=== PATIENT | male | born 2005 | race Caucasian/White ===

== ENCOUNTER 2024-03-30 19:57 | Emergency (ER) | payer OTHER, SELFPAY ==
--- NOTE | 2024-03-30 | ECG_ITS ---
Test Reason : ALCHOL WITHDRAWL Blood Pressure : / mmHG Vent. Rate : 093 BPM Atrial Rate : 093 BPM P-R Int : 114 ms QRS Dur : 092 ms QT Int : 348 ms P-R-T Axes : 067 039 032 degrees QTc Int : 432 ms Normal sinus rhythm with sinus arrhythmia Normal ECG No previous ECGs available Referred By: Generic ED Physician Electronically Signed By:VANDANA HURD MD
[2024-03-30 20:05] VITALS: BP 123/78; BP 136/71; PULSE 104; PULSE 99; RESP 20; TEMP 36.9; O2SAT 96; O2SAT 98; BMI 25.8
[2024-03-30 20:07] VITALS: BP 123/78; PULSE 100; RESP 16; TEMP 36.9; O2SAT 99
--- NOTE | 2024-03-30 20:07 | ED.GENADULT ---
HPI - General Adult General Chief complaint: General Medical Stated complaint: alcohol withdrawl, dizzy Time Seen by Provider: 03/30/24 20:05 Source: patient and EMS Mode of arrival: EMS Limitations: no limitations History of Present Illness ED Provider: Kerwin SLATER HPI narrative: 18-year-old male presents with a chief complaint of I am in liquor withdrawal , patient reports he drinks 5 nips a day last drink was Tuesday, since then he has just not been feeling well with nausea, shakiness. Feeling somewhat anxious. Denies hallucinations, suicidal or homicidal ideation. Reports he also smokes and is nicotine dependent. Denies any other illicit drugs. Denies history of delirium tremens. He states he drinks whatever I can get my hands on . Denies chest pain, shortness breath, fevers, chills, headache, vision changes, dizziness, diaphoresis Related Data Allergies Allergy/AdvReac Type Severity Reaction Status Date / Time No Known Allergies Allergy Verified 03/30/24 20:09 Review of Systems Review of Systems: Yes all other systems are reviewed and are negative [facility] Past Medical History Attestation statement: The following information was validated with the patient. Source: old records reviewed and nursing notes reviewed Social History Social History Do you have a plan to hurt others: No Plan Physical Exam ED Vital Signs: Vital Signs - 24 hr 03/30/24 20:05 03/30/24 20:07 03/30/24 22:29 Temperature 98.5 F 98.5 F 97.9 F Pulse Rate 99 100 91 Respiratory Rate 20 16 12 Blood Pressure 123/78 123/78 123/67 Pulse Oximetry 98 99 99 Oxygen Delivery Method Room Air Room Air Room Air BMI result Body Mass Index 25.8 vss Appearance: Alert.? Oriented X3.? No acute distress.? Patient anxious appear Head: Normocephalic, atraumatic, no step-offs or deformities. No tongue fasciculations Eyes: Pupils equal, round and reactive to light.? Neck: Normal inspection.? Neck supple. CVS: Normal heart rate and rhythm.? Pulses normal.? Respiratory: No respiratory distress.? Breath sounds normal.? Abdomen: Soft and nontender.? Skin: Skin warm and dry.? Normal skin color.? Normal skin turgor.? Extremities: No lower extremity edema.? No calf ttp. 5/5 strength to bilateral upper and lower extremities. No asterixis Neuro: Oriented X 3.? No motor deficit.? No sensory deficit. CN 2-12 intact Course Reevaluation(s) Reevaluation #1: CBC no acute findings requiring intervention. Chemistry with low potassium 3.2 oral potassium ordered. No other acute electrolyte abnormalities needing intervention. Total bilirubin 1.4 no abdominal tenderness to palpation no nausea, fevers, chills, tachycardia or abdominal tenderness on exam. No indication for further imaging will have him follow up with PCP for elevated hyperbilirubinemia. Ethanol negative. Urine toxicology pending. I will place a consult for the care team to evaluate patient. There is no signs of clinical withdrawal at this time. Plan will place CIWA protocol. And have care team evaluate patient At this time patient will be placed into observation to allow more time to be evaluated by care team. At time observation was started patient common cooperative no acute distress will continue to monitor. Time: 21:54 Reevaluation #2: Affect care team will give patient resources for detox if needed. Did speak to [facility] who feels comfortable taking patient back without a care team evaluation. Patient not suicidal or homicidal. He is feeling well and would like to leave. Appears much better at this time. Calm collected. No signs of ian or psychosis. No signs of intoxication. Alert and oriented x4. At this time patient to be discharged home with outpatient resources Educated patient on diagnosis and treatment plan, answered all question, patient verbalizes understanding. At this time patient will be discharged home, advised to return with new or worsening symptoms. Educated on worrisome signs and symptoms and when to return. At this time I feel comfortable discharge home. Observation ended at this time as patient is not interested in meeting with care team. Time: 22:35 Medications Administered Discontinued Medications Generic Name Dose Route Start Last Admin Trade Name Freq PRN Reason Stop Dose Admin Lorazepam 2 mg 03/30/24 20:08 03/30/24 20:45 Lorazepam 1 Mg Tablet PO 03/30/24 20:09 2 mg ONCE ONE Administration Potassium Chloride 20 meq 03/30/24 21:53 03/30/24 22:01 Potassium Chloride Er 20 Meq Tab.Er.Prt PO 03/30/24 21:54 20 meq ONCE ONE Administration Medical Decision Making Medical Decision Making MDM Narrative: 2010 18-year-old male presents with shakiness, and concerns he is in alcohol withdrawal. Reports he drinks 5 nips a day last drink on Tuesday. Not suicidal or homicidal Physical exam patient appears History and physical exam concerning for anxiety versus alcohol withdrawal less likely. No signs of delirium tremens. Also concerned for anxiety and/or depression. Will rule out polysubstance abuse. Unlikely metabolic derangements. No seizure-like activity unlikely delirium tremens. No chest pain, shortness of breath unlikely PE, ACS. This is likely anxiety. Plan at this time labs, imaging, urine. Differential Diagnosis Differential Diagnoses: The differential diagnosis associated with the presentation includes History and physical exam concerning for anxiety versus alcohol withdrawal less likely. No signs of delirium tremens. Also concerned for anxiety and/or depression. Will rule out polysubstance abuse. Unlikely metabolic derangements. No seizure-like activity unlikely delirium tremens. No chest pain, shortness of breath unlikely PE, ACS. This is likely anxiety. Admission/Observation Consideration of admission/observation: Escalation of care including admission/observation considered unlikley Consult Healthcare Provider Management of the patient was discussed with: Behavioral Health Provider Lab Data 03/30/24 20:11 03/30/24 20:11 Labs: Lab Results 03/30/24 Range/Units 20:11 WBC 9.2 (4.8-10.8) X10*3/uL RBC 4.65 (4.60-5.80) X10*6/uL Hgb 14.3 (14.0-18.0) g/dl Hct 39.5 L (42.0-52.0) % MCV 84.9 (80.0-98.0) fL MCH 30.8 (27.0-33.0) pg MCHC 36.2 H (31.0-36.0) g/dl RDW 12.3 (11.0-16.0) % Plt Count 209 (160-400) X10*3/uL MPV 12.1 (9.4-12.4) fL Immature Gran % (Auto) 0.2 (0.0-0.4) % Neut % (Auto) 69.0 (45-73) % Lymph % (Auto) 22.7 (20-40) % [place] % (Auto) 7.0 (2-11) % Eos % (Auto) 0.8 (0-4) % Baso % (Auto) 0.3 (0-2) % Lymph # (Auto) 2.1 (1.2-4.9) X10*3/uL [place] # (Auto) 0.6 (0.1-1.2) X10*3/uL Eos # (Auto) 0.1 (0.0-0.4) X10*3/uL Baso # (Auto) 0.0 (0.0-0.2) X10*3/uL Abs Immat Gran (auto) 0.02 (0.00-0.03) X10*3/uL Absolute Neuts (auto) 6.3 (2.0-8.3) x10*3/uL Absolute Nucleated RBC 0.000 (0.0-0.012) X10*3/uL Nucleated RBC % (auto) 0.0 (0.0-0.2) /100WBC Sodium 139 (135-145) mmol/L Potassium 3.2 L (3.3-5.1) mmol/L Chloride 107 (96-108) mmol/L Carbon Dioxide 20 L (22-29) mmol/L Anion Gap 15 (12-20) BUN 8 L (9-16) mg/dL Creatinine 0.88 (0.5-1.4) mg/dL Estim Creat Clear Calc 139.4 Estimated GFR > 60 Random Glucose 138 H (60-115) mg/dL Calcium 9.6 (8.4-10.2) mg/dL Magnesium 2.0 (1.6-2.6) mg/dL Total Bilirubin 1.4 H (0.0-1.0) mg/dL AST 13 (5-37) U/L ALT 12 (0-40) U/L Alkaline Phosphatase 101 (39-117) U/L Total Protein 7.4 (6.5-8.0) g/dL Albumin 4.4 (3.5-5.0) g/dL Ethyl Alcohol < 10 mg/dL Discharge Plan Discharge Clinical Impression: Anxiety Patient Disposition: Home, Self-Care Instructions: Panic Disorder (ED), Anxiety (ED) Additional Instructions: Take your medications as prescribed. If you were prescribed antibiotics today, it is important that you take your medication to their entirety, do not skip any doses, do not finish them early. Follow-up with your primary care provider this week. Return to the emergency department with new or worsening symptoms. Such as fevers, chills, chest pain, shortness of breath, nausea, vomiting, dizziness, headache, vision changes, lethargy In case of emergency call 911 Referrals: ED Physician,Generic [Physician] - 2 days Stand Alone Forms: Work/School Release
[2024-03-30 20:18] LABS: MANUAL DIFF FLAG NO
[2024-03-30 20:20] LABS: Basophils Percent Auto 0.3 % (0-2); Eosinophils Absolute Auto 0.1 X10*3/uL (0.0-0.4); Eosinophils Percent Auto 0.8 % (0-4); Hematocrit 39.5 % (42.0-52.0); Hemoglobin 14.3 g/dl (14.0-18.0); Imm Gran Abs Auto 0.02 X10*3/uL (0.00-0.03); Imm Gran Pct Auto 0.2 % (0.0-0.4); Lymphocytes Absolute Auto 2.1 X10*3/uL (1.2-4.9); Lymphocytes Percent Auto 22.7 % (20-40); Mean Corpuscular HGB Conc 36.2 g/dl (31.0-36.0); Mean Corpuscular Hemoglobin 30.8 pg (27.0-33.0); Mean Corpuscular Volume 84.9 fL (80.0-98.0); Mean Platelet Volume 12.1 fL (9.4-12.4); Monocytes Absolute Auto 0.6 X10*3/uL (0.1-1.2); Neutrophils Absolute Auto 6.3 x10*3/uL (2.0-8.3); Platelet Count 209 X10*3/uL (160-400); Red Blood Count 4.65 X10*6/uL (4.60-5.80); Red Cell Distribution Width 12.3 % (11.0-16.0); White Blood Count 9.2 X10*3/uL (4.8-10.8)
[2024-03-30 20:43] LABS: Alanine Aminotransferase 12 U/L (0-40); Albumin Level 4.4 g/dL (3.5-5.0); Alkaline Phosphatase 101 U/L (39-117); Anion Gap 15 (12-20); Aspartate Amino Transferase 13 U/L (5-37); Bilirubin Total 1.4 mg/dL (0.0-1.0); Blood Urea Nitrogen 8 mg/dL (9-16); Calcium 9.6 mg/dL (8.4-10.2); Carbon Dioxide 20 mmol/L (22-29); Chloride 107 mmol/L (96-108); Creatinine Clr Calc Pharmacy 139.4; Estimated Glomerular Filt Rate > 60; Ethanol < 10 mg/dL; Glucose Random 138 mg/dL (60-115); Potassium 3.2 mmol/L (3.3-5.1); Sodium 139 mmol/L (135-145); Total Protein 7.4 g/dL (6.5-8.0)
[2024-03-30] MEDS: LORazepam 1 MG TABLET 2 MG PO (20:45)
[2024-03-30] MEDS: Potassium Chloride ER 20 MEQ TAB.ER.PRT PO (22:01)
[2024-03-30 22:29] VITALS: BP 123/67; PULSE 91; RESP 12; TEMP 36.6; O2SAT 99
--- NOTE | 2024-03-30 22:49 | MHC.CARE ---
Pt was given information about how to access the [facility], the [facility] and the [facility].
[2024-03-30 23:19] VITALS: BP 123/67; PULSE 91; RESP 12; TEMP 36.6; O2SAT 99
== END 2024-03-30 23:20 | disposition home or self-care (01) ==
PROVIDERS: Physician Assistant; Emergency Provider Emergency Medicine
DX: F10.239 Alcohol dependence with withdrawal, unspecified (principal); I49.8 Other specified cardiac arrhythmias; Y90.0 Blood alcohol level of less than 20 mg/100 ml; F41.1 Generalized anxiety disorder; F43.0 Acute stress reaction; R42 Dizziness and giddiness; R11.0 Nausea; Z79.899 Other long term (current) drug therapy
CPT/HCPCS: 36415; 80053; 80307; 83735; 85025; 93005; 99284

== ENCOUNTER → 2024-03-30 20:09 | Outpatient (BNV) | payer OTHER, SELFPAY | PROVIDERS: Emergency Provider Emergency Medicine; Visit Provider Internal Medicine Cardiovascular Disease | DX: R42 Dizziness and giddiness (principal) | CPT/HCPCS: 93010 ==

== ENCOUNTER 2024-04-18 09:06 | Emergency (ER) | payer OTHER, SELFPAY ==
--- NOTE | ~2024-04-18 | XR_ITS ---
EXAMINATION: XR HAND, RIGHT CLINICAL INFORMATION: Right hand pain after trauma. COMPARISON: None available. TECHNIQUE: PA, lateral, and oblique views of the right hand. FINDINGS: Alignment is anatomic. Joint spaces are maintained. No displaced fracture or dislocation. No focal radiographic soft tissue swelling. XR/XR hand RT min 3V IMPRESSION: No acute abnormality.
[2024-04-18 09:16] VITALS: BP 119/75; PULSE 76; RESP 16; TEMP 37; O2SAT 99; BMI 24.1
--- NOTE | 2024-04-18 10:59 | ED_ITS ---
HPI - Extremity Problem General Chief complaint: Extremity Injury, Upper Stated complaint: hand inj Time Seen by Provider: 04/18/24 10:39 Source: patient, RN notes reviewed and old records reviewed Mode of arrival: ambulatory History of Present Illness ED Provider: Eve Brady PA-C [facility] Narrative: 18-year-old male with no significant past medical history presenting to the ED complaining of right hand pain s/p punching wall last night. Denies injury to other area, numbness/tingling, weakness. Reports pain with ROM. Related Data Allergies Allergy/AdvReac Type Severity Reaction Status Date / Time No Known Allergies Allergy Verified 04/18/24 09:20 Review of Systems Review of Systems: Constitutional: No Fever, No Chills ENT/Mouth: No Ear Pain, No Nasal Congestion, No sore throat, No Rhinorrhea, No Swallowing Difficulty Cardiovascular: No Chest Pain, No SOB Respiratory: No Cough, No Sputum Gastrointestinal: No Nausea, No Vomiting, No Abdominal pain Musculoskeletal: + joint pain, No Myalgias, +joint Swelling Skin: No Skin Lesions, No rash Neuro: No Weakness, No Numbness, No Paresthesias Yes all other systems are reviewed and are negative Constitutional: Constitutional: Reports as per [facility] Social History Social History Alcohol intake: current Alcohol type: hard liquor Advance Directives: No Advance Directives Information Provided: No Physical Exam Vital Signs: Vital Signs: Last Vital Signs Temp 97.4 F 04/18/24 13:14 Pulse 82 04/18/24 13:14 Resp 18 04/18/24 13:14 BP 110/75 04/18/24 13:14 Pulse Ox 100 04/18/24 13:14 O2 Del Method Room Air 04/18/24 13:14 BMI result Body Mass Index 24.1 Const: General: cooperative, healthy appearing and no acute distress Orientation/consciousness: patient oriented x3 Limitations: no limitations HEENT: Head: Yes normal to inspection and Yes atraumatic Ears: hearing grossly normal bilaterally General nose exam: Normal external nose present Face and sinus: Yes normal facial exam Eyes: General: appearance normal, both eyes and all related structures EOM: EOMs intact bilaterally Neck: Neck: Yes normal visual inspection and Yes no meningeal signs Resp: Effort & Inspection: normal respiratory effort and no respiratory distress Cardio: Rate: regular rate GI: Inspection: Yes normal to inspection Palpation (GI): Soft to palpation, nontender, no guarding and not rigid Skin: Rashes: no rashes Wounds: no wounds Neuro: General: patient oriented x3, tone normal and no meningeal signs Cranial nerves: Yes CN's II-XII intact bilaterally Gait exam (Neuro): Normal gait present Extrem: Other: Right hand with appreciable swelling greatest to 4th and 5th MCPs with tenderness to palpation. Full range of motion intact with some discomfort. Neurovascularly intact. [id number] opposition intact. No crepitus. Open wounds Course Course Course Narrative: XR hand RT min 3V IMPRESSION: No acute abnormality. > my interpretation: Questionable 5th MCP/distal carpal bone fracture >> discussed case with radiologist who read imaging and they do not appreciate an acute fracture. >> Ross wrap applied for comfort. Will refer patient Orthopedics Results discussed with patient including worrisome signs and symptoms and strict return precautions, and when to return to the emergency department. They verbalized understanding and feel safe for discharge at this time. Medical Decision Making Medical Decision Making MDM Narrative: 18-year-old male with no significant past medical history presenting to the ED complaining of right hand pain s/p punching wall last night. On exam vital signs stable, NAD, nontoxic appearing, physical exam as noted above. Concern for fracture vs strain. No evidence of septic joint/arthritis plan: X-ray Please refer to course for remaining clinical decision making, interpretation of labs/imaging results, and discussions with consultants and/or family members. Differential Diagnosis Differential Diagnoses: The differential diagnosis associated with the pres entation includes As above Independent Interpretation I performed an independent interpretation of an: Plain X-Ray Radiology Impression Discussion of test interpretation with radiology: I have reviewed the radiologist's reading. External Record Review External record reviewed: Inpatient record, Office record, Outpatient record, Prior outpatient labs, Prior outpatient radiology, Primary care record and Outside ED record Tests considered The following testing was considered but not selected: As above Prescription Management I considered prescription management with: Pain Medication Discharge Plan Discharge Clinical Impression: Hand injury Patient Disposition: Home, Self-Care Instructions: Hand Sprain (ED) Additional Instructions: Your x-ray does not show an acute fracture Please follow-up with Orthopedics Take Tylenol /Motrin for pain/swelling Wear Ross wrap for comfort as needed If pain persists or worsens return to the ED Referrals: [facility] [place] [facility] [Provider Group] - 1 week Discharge Date/Time: 04/18/24 13:14 Print Language: Pashto
[2024-04-18 13:14] VITALS: BP 110/75; PULSE 82; RESP 18; TEMP 36.3; O2SAT 100
== END 2024-04-18 13:14 | disposition home or self-care (01) ==
PROVIDERS: Emergency Provider Emergency Medicine
DX: S69.91XA Unspecified injury of right wrist, hand and finger(s), initial encounter (principal); W22.09XA Striking against other stationary object, initial encounter; Y93.9 Activity, unspecified; Y92.9 Unspecified place or not applicable; Y99.9 Unspecified external cause status
CPT/HCPCS: 73130; 99283

== ENCOUNTER 2024-04-21 12:13 | Emergency (ER) | payer OTHER, SELFPAY ==
--- NOTE | ~2024-04-21 | XR_ITS ---
EXAMINATION: XR HAND, RIGHT CLINICAL INFORMATION: Injury. COMPARISON: Radiograph right hand 04/18/2024. TECHNIQUE: PA, lateral, and oblique views of the right hand. FINDINGS: The bones and soft tissues are normal. No fracture. Alignment is anatomic. Joint spaces are maintained. No erosions or soft tissue calcifications. XR/XR hand RT min 3V IMPRESSION: Normal right hand.
[2024-04-21 12:16] VITALS: BP 112/63; PULSE 96; RESP 18; TEMP 36.6; O2SAT 98; BMI 24.1
--- NOTE | 2024-04-21 13:08 | ED_ITS ---
HPI - Extremity Problem General Chief complaint: Extremity Injury, Upper Stated complaint: R Hand Injury 04/21/24 Time Seen by Provider: 04/21/24 12:27 Source: patient Mode of arrival: ambulatory Limitations: no limitations History of Present Illness ED Provider: Shirin Kirkpatrick APRN HPI Narrative: 18-year-old male right-hand dominant with no known medical history presents to the ER with complaints of right hand pain after punching a metal door yesterday. Patient denies any numbness, weakness, tingling of the extremity. Related Data Allergies Allergy/AdvReac Type Severity Reaction Status Date / Time No Known Allergies Allergy Verified 04/21/24 12:18 Review of Systems Review of Systems: Yes all other systems are reviewed and are negative Constitutional: Constitutional: Reports no additional constitutional complaints, Denies body ache(s), Denies chills, Denies fever(s), Denies headache(s) and Denies weakness Eyes: Eyes: Reports no additional eye complaints and Denies change in vision ENT: Reports system reviewed and no additional complaints, except as documented, Denies dizziness, Denies headache(s), Denies nasal congestion, Denies nasal discharge and Denies neck pain Cardiovascular: Cardiovascular: Reports no additional cardiovascular comp laints, Denies chest pain, Denies leg edema and Denies dyspnea Respiratory: Respiratory: Reports no additional respiratory complaints, Denies cough and Denies dyspnea Gastrointestinal: Gastrointestinal: Reports no additional gastrointestinal complaints, Denies abdominal pain, Denies diarrhea, Denies nausea and Denies vomiting Genitourinary: Genitourinary: Denies urinary incontinence Musculoskeletal: Musculoskeletal: Reports no additional musculoskeletal complaints, Denies back pain, Reports arthralgias, Reports joint swelling, Denies limited range of motion, Denies neck pain, Denies numbness and Denies tingling Integumentary/Breasts: Skin/Breast: Reports system reviewed and no additional complaints, except as docu and Denies rash Neurologic: Reports system reviewed and no additional complaints, except as documented, Denies Abnormal speech present, Denies dizziness, Denies headache(s), Denies numbness, Denies tingling and Denies weakness PMFSH Past Medical History Attestation statement: The following information was validated with the patient. Source: old records reviewed and nursing notes reviewed Social History Social History Alcohol intake: current Alcohol type: hard liquor Advance Directives: No Advance Directives Information Provided: No Physical Exam Vital Signs: Vital Signs: Last Vital Signs Temp 97.8 F 04/21/24 12:16 Pulse 96 04/21/24 12:16 Resp 18 04/21/24 12:16 BP 112/63 04/21/24 12:16 Pulse Ox 98 04/21/24 12:16 O2 Del Method Room Air 04/21/24 12:16 BMI result Body Mass Index 24.1 Const: General: cooperative, healthy appearing, comfortable and no acute distress Orientation/consciousness: patient oriented x3 Limitations: no limitations HEENT: Head: Yes normal to inspection Ears: hearing grossly normal bilaterally General nose exam: Normal external nose present Face and sinus: Yes normal facial exam Mouth: Normal oral and palatal mucosa present Throat: Yes posterior oropharynx normal Eyes: General: appearance normal, both eyes and all related structures Pupils: Equal, round and reactive pupils present Neck: Neck: Yes normal visual inspection Chest: Chest palpation & inspection: normal inspection of the chest Resp: Effort & Inspection: normal respiratory effort Auscultation: clear to auscultation bilaterally Cardio: Rate: regular rate Rhythm: regular rhythm Peripheral pulses: Peripheral pulses 2+ throughout GI: Inspection: Yes normal to inspection Palpation (GI): Soft to palpation and nontender Auscultation: normal bowel sounds Back/Spine/Pelvis: Thoracic/Lumbar Spine: thoracic and lumbar spine normal to inspection Skin: General skin exam: no rashes or lesions noted Neuro: General: patient oriented x3, no focal motor deficits and normal sensation to monofilament Cranial nerves: Yes Equal, round and reactive pupils present Cognition (Neuro): normal cognition Speech: No Abnormal speech present Gait exam (Neuro): Normal gait present Motor exam (neuro): 5/5 motor strength present throughout Extrem: Other: To the distal dorsal right hand over the 4th and 5th digits at the base there is swelling and tenderness. There is full active and passive range of motion of the hand. There is normal radial and ulnar pulses. Normal sensation. General: Yes normal to inspection Medical Decision Making Medical Decision Making MDM Narrative: 18-year-old male right-hand dominant with no known medical history presents to the ER with complaints of right hand pain after punching a metal door yesterday. Patient denies any numbness, weakness, tingling of the extremity. To the distal dorsal right hand over the 4th and 5th digits at the base there is swelling and tenderness. There is full active and passive range of motion of the hand. There is normal radial and ulnar pulses. Normal sensation. Will check x-rays Differential Diagnosis Differential Diagnoses: The differential diagnosis associated with the presentation includes Fracture, contusion Admission/Observation Consideration of admission/observation: Escalation of care including admission/observation considered Independent Interpretation I performed an independent interpretation of an: Plain X-Ray Interpretation: I independently viewed the x-ray and agree with the radiology report Radiology Impression Discussion of test interpretation with radiology: I have reviewed the radiologist's reading. Radiologist Impression: [address] [address] XRay Report Signed Patient: Vipin Sampson MR#: [id number] : 2005 Acct:[id number] Age/Sex: 18 / M ADM Date: 04/21/24 Loc: HO.ED Attending Dr: Ordering Physician: Kwasi Pham MD Date of Service: 04/21/24 Procedure(s): XR hand RT min 3V Accession Number(s): [id number] cc: Kwasi Pham MD; Physician,None ~ EXAMINATION: XR HAND, RIGHT CLINICAL INFORMATION: Injury. COMPARISON: Radiograph right hand 04/18/2024. TECHNIQUE: PA, lateral, and oblique views of the right hand. FINDINGS: The bones and soft tissues are normal. No fracture. Alignment is anatomic. Joint spaces are maintained. No erosions or soft tissue calcifications. XR/XR hand RT min 3V IMPRESSION: Normal right hand. Discharge Plan Discharge Clinical Impression: Contusion of hand Patient Disposition: Home, Self-Care Instructions: Contusion in Adults (ED) Additional Instructions: x-rays are normal Ice to the area rea wrap to the area Referrals: Physician,None [Primary Care Provider] - 1 week Print Language: Belarusian
[2024-04-21 13:55] VITALS: BP 111/61; PULSE 67; RESP 17; TEMP 37; O2SAT 99
[2024-04-21 14:03] VITALS: BP 111/61; PULSE 67; RESP 17; TEMP 37; O2SAT 99
== END 2024-04-21 14:03 | disposition home or self-care (01) ==
PROVIDERS: Emergency Provider Emergency Medicine
DX: S60.221A Contusion of right hand, initial encounter (principal); W22.09XA Striking against other stationary object, initial encounter; Y93.89 Activity, other specified; Y92.9 Unspecified place or not applicable; Y99.9 Unspecified external cause status
CPT/HCPCS: 73130; 99283

== ENCOUNTER 2024-04-24 08:45 | Outpatient (AMB) | payer OTHER, SELFPAY ==
--- NOTE | 2024-04-24 08:46 | MHC.OFFVIS ---
Vital Signs 04/24/24 08:47 Height 5 ft 10 in Weight 167 lb BMI 24.0 Intake Visit Reasons: [employer]-Right hand inj, DOI 04/17/24 Intake Note: Vipin is a 18 yo right hand dominant male who presents today as a new patient for a right hand injury after punching a wall, DOI 04/17/24. Patient reports swelling located on ring and pinky fingers, 0 on a 0-10 pain scale. Denies numbness, tingling or locking on fingers. Reports previous injury to the hand about 2 years ago Accompanied by: Self / Same As Patient Allergies No Known Allergies Allergy (Verified 04/24/24 08:48) HPI HPI P[employer]-Right hand inj, DOI 04/17/24: Details: Patient is a 18-year-old male who presents for evaluation of right hand injury, date of injury 04/17/2024 and 04/21/2024. Patient reports that, on both of the dates, he punched a wall with his right hand, resulting in pain and swelling, particularly over the 4th and 5th MCP joints. Patient states that he had a similar injury approximately 2 years ago, that he never had evaluated. Patient was previously evaluated in the ED on both occasions, where x-rays were taken that revealed no fracture or acute bony abnormality. Today, the patient reports that he is not experiencing any pain, and then his edema has decreased significantly since date of injury. The patient also reports that his right hand does go numb occasionally, but this only tends to happen when it is cold outside. No other acute concerns or complaints at this time. [facility], LAT[facility] Social History (Updated 04/24/24 @ 08:49 by PHILL Cain) Alcohol intake: current Alcohol type: hard liquor Current occupational status: unemployed and student Current occupation: RT handed Review of Systems Const All systems reviewed & are unremarkable except as noted in HPI and below Physical Exam Vital Signs: BMI result Body Mass Index 24.0 Extrem Other: Patient is alert, oriented, and in no acute distress. Neuro: Median, ulnar, radial nerves motor and sensory intact and sensation is normal to the tips of all digits. Vascular: Cap refill brisk Pain: Patient reports no pain or tenderness to palpation in his hand at this time ROM: Range of motion full and intact in the right hand Skin: No lacerations or abrasions. General: No ecchymosis, erythema, or evidence of infection. There appears to be a sunken deformity of the 4th MCP joint of the right hand, which the patient reports it is not new and has been ongoing since he was approximately 15. Psych: Appears grossly normal Affect normal Attitude cooperative Results Reviewed Results Reviewed: X-rays taken in the emergency department on both 04/18/2024 and 04/21/2024 and independently reviewed by me, Silvano Oliveros PA-C, demonstrate no fracture or acute bony abnormality Assessment & Plan Assessment & Plan (1) Contusion of right hand: Code(s): S60.221A - Contusion of right hand, initial encounter Category: Medical Qualifiers: Encounter type: initial encounter Qualified Code(s): S60.221A - Contusion of right hand, initial encounter Plan 1. Right hand contusion Date of injury 04/17/2024 and 04/21/2024 At this time, no acute intervention is indicated in this patient Patient is amenable to this Patient is educated on the potential ramifications of continuing to punch hard surfaces, such as hernandez and doors Patient states that he understands, and will attempt to avoid doing these things in the future Patient is also educated to wear gloves or other hand coverings while outside in cold weather, to prevent this numbness he speaks of. Patient to follow-up p.r.n. with any acute concerns Coding Level of Care Code New Pt Level 3 (89189) Diagnoses Contusion of right hand, initial encounter S60.221A Encounter type: initial encounter
[2024-04-24 08:47] VITALS: BMI 24.0
== END 2024-04-24 09:05 | disposition home or self-care (01) ==
DX: S60.221A Contusion of right hand, initial encounter (principal)
CPT/HCPCS: 99202

== ENCOUNTER → 2024-04-24 08:45 | Outpatient (BNVA) | payer OTHER, SELFPAY | DX: S60.221A Contusion of right hand, initial encounter (principal) | CPT/HCPCS: 99202 ==